=== PATIENT | female | born 1980 | race Caucasian/White ===

== ENCOUNTER 2016-08-20 15:54 | Emergency (ER) | payer OTHER ==
[~2016-08-20] VITALS: Ht 162.6 cm; Wt 70.0 kg
[2016-08-20 15:58] VITALS: BP 148/87; PULSE 91; RESP 15; TEMP 98.5; O2SAT 98
--- NOTE | 2016-08-20 16:21 | PD ---
Physical Exam Time Seen by Provider: 16:20 Narrative 36 y/o female here for evaluation of L leg pain, chest pain, hematemesis, paresthesias in L arm since yesterday. Vital signs reviewed. Seen at triage desk. Awaiting bed placement. Data Data Last Documented VS Vital Signs Date Time Temp Pulse Resp B/P Pulse Ox O2 Delivery O2 Flow Rate FiO2 08/20/16 15:58 98.5 91 15 148/87 98 MDM Medical Record Reviewed: Yes Supervised Visit with XIOMY: Jose Connolly Aug 20, 2016 16:21
--- NOTE | 2016-08-20 17:09 | RADRPT ---
EXAM DATE/TIME: 08/20/2016 16:34 [facility] COMPARISON: No previous studies available for comparison. INDICATIONS : Left side chest pain and radiating left leg pain. MEDICAL HISTORY : None. SURGICAL HISTORY : None. ENCOUNTER: Initial ACUITY: 2 days PAIN SCORE: 4/10 LOCATION: Left chest FINDINGS: A single view of the chest demonstrates the lungs to be symmetrically aerated without evidence of mas s, infiltrate or effusion. The cardiomediastinal contours are unremarkable. Body piercing in the mi d upper chest assumed to be in chest wall. Osseous structures are intact. CONCLUSION: 1. No acute cardiopulmonary disease. Richard Lafleur MD on August 20, 2016 at 17:07 Board Certified Radiologist. This report was verified electronically.
[2016-08-20 17:19] LABS: AUTOMATED NEUTROPHIL # 4.4 TH/MM3 (1.8-7.7); BASOPHIL # 0.1 TH/MM3 (0-0.2); EOSINOPHIL # 0.2 TH/MM3 (0-0.4); EOSINOPHIL % 2.5 % (0.0-4.0); HEMATOCRIT 36.5 % (35.0-46.0); HEMO FLAGS DIFF FINAL; LYMPH % 29.9 % (9.0-44.0); LYMPHOCYTE # 2.3 TH/MM3 (1.0-4.8); MEAN CELL VOLUME 88.2 FL (80.0-100.0); MEAN CORPUSCULAR HEMOGLOBIN 29.2 PG (27.0-34.0); MEAN CORPUSCULAR HGB CONC 33.1 % (32.0-36.0); MONO % 8.3 % (0.0-8.0); NEUT % 58.3 % (16.0-70.0); PLATELET COUNT 272 TH/MM3 (150-450); RED BLOOD COUNT 4.14 MIL/MM3 (4.00-5.30); RED CELL DISTRIBUTION WIDTH 13.5 % (11.6-17.2); WHITE BLOOD COUNT 7.6 TH/MM3 (4.0-11.0)
[2016-08-20 17:31] LABS: APTT (PATIENT) 22.3 SEC (24.3-30.1); INTERNATIONAL NORMALIZED RATIO 0.9 RATIO; PROTHROMBIN TIME - PATIENT 10.1 SEC (9.8-11.6)
[2016-08-20 17:34] LABS: ALT (GPT) 20 U/L (10-53); ANION GAP 10 MEQ/L (5-15); AST (GOT) 9 U/L (15-37); BICARBONATE 20.4 MEQ/L (21.0-32.0); BLOOD UREA NITROGEN 11 MG/DL (7-18); CHLORIDE 114 MEQ/L (98-107); GLOMERULAR FILTRATION RATE 79 ML/MIN (>89); POTASSIUM 3.8 MEQ/L (3.5-5.1); SODIUM (NA) 144 MEQ/L (136-145)
[2016-08-20 17:38] LABS: ALKALINE PHOSPHATASE 71 U/L (45-117); CREATINE KINASE 103 U/L (26-192); TOTAL BILIRUBIN ADULT 0.3 MG/DL (0.2-1.0)
[2016-08-20 17:51] LABS: CKMB LESS THAN 0.5 NG/ML (0.5-3.6)
[2016-08-20] MEDS ORDERED: XANA1TAB2 PO (18:00)
--- NOTE | 2016-08-20 18:12 | PD ---
HPI Chief Complaint: Chest Pain Time Seen by Provider: 17:50 Travel History International Travel<30 days: No Contact w/Intl Traveler<30days: No Traveled to known affect area: No History of Present Illness HPI The patient was seen and examined in the presence of the nurse. Patient is visiting from [place]. She is a very anxious 36-year-old female with history of irritable bowel syndrome who takes Xanax. She has a host of somatic complaints including left leg swelling and left leg pain and chest pain and shortness of breath and left arm paresthesias. She is highly anxious. She is wearing mirrored sunglasses throughout the exam. Symptoms are moderate using her description of symptoms. Duration one day. No alleviating factors. PFSH Past Medical History ?: Unknown Social History Alcohol Use: No Tobacco Use: No Substance Use: No Allergies-Medications (Allergen,Severity, Reaction): Coded Allergies: Toradol (Verified Allergy, Unknown, vomiting , 08/20/16) Tramadol (Verified Allergy, Unknown, vomiting, 08/20/16) Reported Meds & Prescriptions Reported Meds & Active Scripts Active Reported Xanax (Alprazolam) 1 Mg Tab 1 Mg PO Q8H PRN Review of Systems General / Constitutional: No: Fever Eyes: No: Visual changes HENT: No: Headaches Cardiovascular: Positive: Chest Pain or Discomfort, Edema Respiratory: Positive: Shortness of Breath Gastrointestinal: Positive: Hematemesis, No: Abdominal Pain Genitourinary: No: Dysuria Musculoskeletal: Positive: Myalgias, Edema, Pain Skin: No Rash Neurologic: Positive: Paresthesia, No: Weakness Psychiatric: Positive: Anxiety, No: Depression Endocrine: No: Polydipsia Hematologic/Lymphatic: No: Easy Bruising Physical Exam Narrative GENERAL: Well-nourished, well-developed patient who is anxious but in no apparent distress. SKIN: Focused skin assessment reveals no rash and nodules. Skin is Warm and dry. HEAD: Atraumatic. Normocephalic. EYES: Pupils equal and round. No scleral icterus. No injection or drainage. ENT: No nasal bleeding or discharge. Mucous membranes pink and moist. NECK: Trachea midline. No JVD. CARDIOVASCULAR: Regular rate and rhythm. No murmur appreciated. RESPIRATORY: No accessory muscle use. Clear to auscultation. Breath sounds equal bilaterally. GASTROINTESTINAL: Abdomen soft, non-tender, nondistended. Hepatic and splenic margins not palpable. MUSCULOSKELETAL: No obvious deformities. No clubbing. No cyanosis. No edema. No erythema or warmth. No asymmetry is noted. No calf tenderness NEUROLOGICAL: Awake and alert. No obvious cranial nerve deficits. Motor grossly within normal limits. Normal speech. PSYCHIATRIC: Very anxious mood and affect; insight and judgment seems a bit reduced. Data Data Last Documented VS Vital Signs Date Time Temp Pulse Resp B/P Pulse Ox O2 Delivery O2 Flow Rate FiO2 08/20/16 15:58 98.5 91 15 148/87 98 Orders Electrocardiogram (08/20/16 16:21) Ckmb (Isoenzyme) Profile (08/20/16 16:21) Complete Blood Count With Diff (08/20/16 16:21) Comprehensive Metabolic Panel (08/20/16 16:21) Magnesium (Mg) (08/20/16 16:21) Prothrombin Time / Inr (Pt) (08/20/16 16:21) Act Partial Throm Time (Ptt) (08/20/16 16:21) Troponin I (08/20/16 16:21) Chest, Single Ap (08/20/16 16:21) Ed Urine Pregnancytest Poc (08/20/16 16:21) CKMB (08/20/16 16:50) CKMB% (08/20/16 16:50) D-Dimer (08/20/16 18:03) Us Leg Venous Doppler (08/20/16 ) Ct Pulmonary Angiogram (08/20/16 ) Labs Laboratory Tests Test 08/20/16 16:50 White Blood Count 7.6 TH/MM3 Red Blood Count 4.14 MIL/MM3 Hemoglobin 12.1 GM/DL Hematocrit 36.5 % Mean Corpuscular Volume 88.2 FL Mean Corpuscular Hemoglobin 29.2 PG Mean Corpuscular Hemoglobin 33.1 % Concent Red Cell Distribution Width 13.5 % Platelet Count 272 TH/MM3 Mean Platelet Volume 8.6 FL Neutrophils (%) (Auto) 58.3 % Lymphocytes (%) (Auto) 29.9 % Monocytes (%) (Auto) 8.3 % Eosinophils (%) (Auto) 2.5 % Basophils (%) (Auto) 1.0 % Neutrophils # (Auto) 4.4 TH/MM3 Lymphocytes # (Auto) 2.3 TH/MM3 Monocytes # (Auto) 0.6 TH/MM3 Eosinophils # (Auto) 0.2 TH/MM3 Basophils # (Auto) 0.1 TH/MM3 CBC Comment DIFF FINAL Differential Comment Prothrombin Time 10.1 SEC Prothromb Time International 0.9 RATIO Ratio Activated Partial 22.3 SEC Thromboplast Time D-Dimer Quantitative (PE/DVT) 1.34 MG/L FEU Sodium Level 144 MEQ/L Potassium Level 3.8 MEQ/L Chloride Level 114 MEQ/L Carbon Dioxide Level 20.4 MEQ/L Anion Gap 10 MEQ/L Blood Urea Nitrogen 11 MG/DL Creatinine 0.81 MG/DL Estimat Glomerular Filtration 79 ML/MIN Rate Random Glucose 91 MG/DL Calcium Level 8.4 MG/DL Magnesium Level 2.0 MG/DL Total Bilirubin 0.3 MG/DL Aspartate Amino Transf 9 U/L (AST/SGOT) Alanine Aminotransferase 20 U/L (ALT/SGPT) Alkaline Phosphatase 71 U/L Total Creatine Kinase 103 U/L Creatine Kinase MB LESS THAN 0.5 NG/ML Troponin I LESS THAN 0.02 NG/ML Total Protein 6.5 GM/DL Albumin 3.6 GM/DL [facility] Medical Decision Making Medical Screen Exam Complete: Yes Emergency Medical Condition: Yes Medical Record Reviewed: Yes Differential Diagnosis Anxiety, panic attack, somatoform disorder, myalgias, DVT Narrative Course I have reviewed the patient's electronic medical record. So far extensive workup has been entirely normal I don't see any objective findings She has normal vital signs and normal exam CBC is normal Metabolic profile is normal CK and troponin levels are normal I reviewed her chest x-ray which is normal LFTs are normal I've added a d-dimer level because the patient would like to rule out DVT Unfortunately d-dimer is come back elevated at 1.34 and is not sufficient to rule out DVT or PE Given her recent travel from [place] and reports of left leg pain and swelling coupled with her report of chest pain and shortness of breath and hematemesis I have ordered both left leg ultrasound and CT pulmonary angiogram Should these be negative she should be stable to follow up as an outpatient Joe Vasquez MD Aug 20, 2016 18:12
--- NOTE | 2016-08-20 19:46 | PD ---
Data Data Last Documented VS Vital Signs Date Time Temp Pulse Resp B/P Pulse Ox O2 Delivery O2 Flow Rate FiO2 08/20/16 20:05 73 18 137/92 98 Room Air 08/20/16 15:58 98.5 Orders Electrocardiogram (08/20/16 16:21) Ckmb (Isoenzyme) Profile (08/20/16 16:21) Complete Blood Count With Diff (08/20/16 16:21) Comprehensive Metabolic Panel (08/20/16 16:21) Magnesium (Mg) (08/20/16 16:21) Prothrombin Time / Inr (Pt) (08/20/16 16:21) Act Partial Throm Time (Ptt) (08/20/16 16:21) Troponin I (08/20/16 16:21) Chest, Single Ap (08/20/16 16:21) Ed Urine Pregnancytest Poc (08/20/16 16:21) CKMB (08/20/16 16:50) CKMB% (08/20/16 16:50) D-Dimer (08/20/16 18:03) Us Leg Venous Doppler (08/20/16 ) Ct Pulmonary Angiogram (08/20/16 ) Troponin I (08/20/16 19:46) Iohexol 350 Inj (Omnipaque 350 Inj) (08/20/16 21:06) Labs Laboratory Tests Test 08/20/16 08/20/16 16:50 20:05 White Blood Count 7.6 TH/MM3 Red Blood Count 4.14 MIL/MM3 Hemoglobin 12.1 GM/DL Hematocrit 36.5 % Mean Corpuscular Volume 88.2 FL Mean Corpuscular Hemoglobin 29.2 PG Mean Corpuscular Hemoglobin 33.1 % Concent Red Cell Distribution Width 13.5 % Platelet Count 272 TH/MM3 Mean Platelet Volume 8.6 FL Neutrophils (%) (Auto) 58.3 % Lymphocytes (%) (Auto) 29.9 % Monocytes (%) (Auto) 8.3 % Eosinophils (%) (Auto) 2.5 % Basophils (%) (Auto) 1.0 % Neutrophils # (Auto) 4.4 TH/MM3 Lymphocytes # (Auto) 2.3 TH/MM3 Monocytes # (Auto) 0.6 TH/MM3 Eosinophils # (Auto) 0.2 TH/MM3 Basophils # (Auto) 0.1 TH/MM3 CBC Comment DIFF FINAL Differential Comment Prothrombin Time 10.1 SEC Prothromb Time International 0.9 RATIO Ratio Activated Partial 22.3 SEC Thromboplast Time D-Dimer Quantitative (PE/DVT) 1.34 MG/L FEU Sodium Level 144 MEQ/L Potassium Level 3.8 MEQ/L Chloride Level 114 MEQ/L Carbon Dioxide Level 20.4 MEQ/L Anion Gap 10 MEQ/L Blood Urea Nitrogen 11 MG/DL Creatinine 0.81 MG/DL Estimat Glomerular Filtration 79 ML/MIN Rate Random Glucose 91 MG/DL Calcium Level 8.4 MG/DL Magnesium Level 2.0 MG/DL Total Bilirubin 0.3 MG/DL Aspartate Amino Transf 9 U/L (AST/SGOT) Alanine Aminotransferase 20 U/L (ALT/SGPT) Alkaline Phosphatase 71 U/L Total Creatine Kinase 103 U/L Creatine Kinase MB LESS THAN 0.5 NG/ML Troponin I LESS THAN 0.02 LESS THAN 0.02 NG/ML NG/ML Total Protein 6.5 GM/DL Albumin 3.6 GM/DL [facility] Medical Record Reviewed: Yes Supervised Visit with XIOMY: No Interpretation(s) Last Impressions Chest X-Ray 08/20/16 1621 Signed Impressions: Service Date/Time: Saturday, August 20, 2016 16:34 - CONCLUSION: 1. No acute cardiopulmonary disease. Richard Lafleur MD Lower Extremity Ultrasound 08/20/16 0000 Signed Impressions: Service Date/Time: Saturday, August 20, 2016 20:15 - CONCLUSION: Normal examination. Jace Crawford Jr., MD CT Angiography 08/20/16 0000 Signed Impressions: Service Date/Time: Saturday, August 20, 2016 20:40 - CONCLUSION: 1. No pulmonary emboli. 2. Clear lungs. 3. 1.5 cm left adrenal gland nodule. This likely relates to a benign adenoma but other etiologies cannot be excluded at this point. An outpatient followup MRI of the adrenal glands is suggested to further evaluate. Jace Crawford Jr., MD Narrative Course During the course of the patients emergency department visit, the patients history, examination, and differential diagnosis were reviewed with the patient. The patient had IV access obtained and blood work sent for analysis. The patient was placed on a athletic monitor with oximetry and blood pressure monitoring. The patient was initially seen by Dr. Vasquez. Please see his complete history and physical. A workup was started including a d-dimer. Blood work was unremarkable except a d-dimer was noted to be elevated. Given the patient's reported calf pain and swelling along with chest pain, and shortness of breath. CTA to rule out PE as well as an ultrasound of the leg was ordered. The patients laboratory studies were reviewed and remarkable for a white count of 7.6, hemoglobin 12.1, platelets 272 with 8.3 monocytes, CMP is remarkable for chloride of 114, CO2 20.4, GFR 79, calcium 8.4, AST 9 CPK 103, MB less than 0.5, troponin I less than 0.02, d-dimer elevated at 1.34, PT 10.1, PTT 22.3. Repeat troponin I 3 hours later is still less than 0.02. Radiology studies were reviewed and remarkable for a chest x-ray that shows no acute cardiopulmonary disease. Ultrasound is negative for DVT. CTA to rule out PE was negative. The patient was noted on CT to have 1.5 cm adrenal nodule. The radiologist recommended outpatient follow-up with an MRI. The patient will be given a lab slip for this to have this done when she returns back home. The patient is resting comfortably and feels better, is alert and in no distress. The patients results and examination findings were discussed with the patient. The repeat examination is unremarkable and benign. The history, exam, diagnostic testing, and current condition do not suggest any significant pathology to warrant further testing, continued ED treatment, admission, or surgical evaluation at this point. The vital signs have been stable. The patient does not have uncontrollable pain, intractable vomiting, or other significant symptoms. The patient's condition is stable and appropriate for discharge. The patient will pursue further outpatient evaluation with a primary care physician or other designated or consulting physician as indicated in the discharge instructions. The patient expressed understanding and was agreeable with this plan. Diagnosis Primary Impression: Leg pain, posterior Qualified Code: M79.605 - Leg pain, posterior, left Additional Impression: Chest pain Qualified Code: R07.9 - Chest pain, unspecified type Referrals: Primary Care Physician 3 days Patient Instructions: Chest Pain (ED), General Instructions, Leg Pain (ED) Additional Instruction: The patient is given an outpatient lab slip for an MRI of the adrenal glands. Med/Other Pt SpecificInfo: No Change to Meds Disposition: 01 DISCHARGE HOME Condition: Stable Margarita Rashid MD Aug 20, 2016 19:46
[2016-08-20 20:05] VITALS: BP 137/92; PULSE 73; RESP 18; O2SAT 98
--- NOTE | 2016-08-20 20:50 | RADRPT ---
EXAM DATE/TIME: 08/20/2016 20:15 [facility] COMPARISON: No previous studies available for comparison. INDICATIONS : Left leg pain and swelling. MEDICAL HISTORY : . IBS. Ovarian cysts. Adenomyosis. SURGICAL HISTORY : Cholecystectomy. ENCOUNTER: Initial ACUITY: 1 day PAIN SCORE: 6/10 LOCATION: Left leg. TECHNIQUE: Venous ultrasound of the leg was performed from the inguinal ligament to the proximal calf. Real-beatriz e, color Doppler and spectral tracing, compression and augmentation techniques were used. FINDINGS: There is normal compressibility of the deep venous system from the inguinal region to the proximal ca lf. No echogenic clot is seen in the lumen of the common femoral, femoral, popliteal, and posterior tibial veins. There is a normal response of the venous system to proximal and distal augmentation an d respiration. CONCLUSION: Normal examination. Jace Crawford Jr., MD on August 20, 2016 at 20:47 Board Certified Radiologist. This report was verified electronically.
[2016-08-20] MEDS ORDERED: IOHEXOL 350 MG/ML 10 ML VIAL (for RAD DIAG) IV ONE (21:06)
--- NOTE | 2016-08-20 21:08 | RADRPT ---
EXAM DATE/TIME: 08/20/2016 20:40 [facility] COMPARISON: No previous studies available for comparison. INDICATIONS : Patient states has chest pain,coughing up blood. IV CONTRAST: 70 cc Omnipaque 350 (iohexol) IV RADIATION DOSE: 23.27 CTDIvol (mGy) MEDICAL HISTORY : ovarian chest SURGICAL HISTORY : Cholecystectomy. ENCOUNTER: Initial ACUITY: 1 day PAIN SCALE: 5/10 LOCATION: chest TECHNIQUE: Volumetric scanning of the chest was performed using a pulmonary embolism protocol MIP images were re constructed. Using automated exposure control and adjustment of the mA and/or kV according to patien t size, radiation dose was kept as low as reasonably achievable to obtain optimal diagnostic quality images. DICOM format image data is available electronically for review and comparison. Follow-up recommendations for incidentally detected pulmonary nodules are based at a minimum on nodul e size and patient risk factors according to Fleischner Society Guidelines. FINDINGS: PULMONARY ARTERIES: No filling defects are seen in the pulmonary arteries through the segmental level. LUNGS: There is no consolidation or pneumothorax . No concerning pulmonary nodule is visualized. PLEURAE: There is no pleural thickening or pleural effusion. MEDIASTINUM: There is good visualization of the great vessels of the middle mediastinum. No evidence of mediastin al or hilar adenopathy/mass. MUSCULOSKELETAL: Within normal limits for patient age. MISCELLANEOUS: The visualized upper abdominal organs demonstrate no acute abnormality. CONCLUSION: 1. No pulmonary emboli. 2. Clear lungs. 3. 1.5 cm left adrenal gland nodule. This likely relates to a benign adenoma but other etiologies can not be excluded at this point. An outpatient followup MRI of the adrenal glands is suggested to [facility]. Jace Crawford Jr., MD on August 20, 2016 at 21:03 Board Certified Radiologist. This report was verified electronically.
--- NOTE | 2016-08-20 21:46 | EKG ---
Date Performed: 08/20/2016 Time Performed: 16:39:30 PTAGE: 36 years EKG: Sinus rhythm NORMAL ECG NO PREVIOUS TRACING DOCTOR: Sharmin Gruber Interpretating Date/Time 08/20/2016 21:45:44
[2016-08-20] MEDS ORDERED: EC-N500T PO (22:06)
[2016-08-20] MEDS ORDERED: ACETAMINOPHEN 325 MG TAB PO ONE (22:15)
[2016-08-20] MEDS ORDERED: IBUPROFEN 800 MG TAB PO ONE (22:30)
== END 2016-08-20 22:32 | disposition home or self-care (01) ==
LOC: NEPE 15:54
DX: M79.605 Pain in left leg (principal); R07.9 Chest pain, unspecified; R06.02 Shortness of breath
CPT/HCPCS: 71010; 71275; 80053; 82550; 82552; 83735; 84484; 84703; 85025; 85379; 85610; 85730; 93005; 93971; 99285; Q9967